=== PATIENT | male | born 1965 ===

== ENCOUNTER → 2023-09-04 14:56 | Outpatient (BNVA) | payer OTHER, SELFPAY | PROVIDERS: Visit Provider Podiatrist Foot & Ankle Surgery | DX: Q66.72 Congenital pes cavus, left foot; Q66.71 Congenital pes cavus, right foot | CPT/HCPCS: 77077; 99203 ==

== ENCOUNTER 2023-12-30 20:00 | Outpatient (CLI) | payer OTHER, SELFPAY | END 2023-12-30 20:01 | disposition home or self-care (01) | LOC: SLEEP 12-31 04:36 | PROVIDERS: Visit Provider Emergency Medicine Emergency Medical Services | DX: G47.33 Obstructive sleep apnea (adult) (pediatric) (principal); R09.02 Hypoxemia; G47.61 Periodic limb movement disorder; R06.83 Snoring | CPT/HCPCS: 95810 ==

== ENCOUNTER 2024-03-16 20:00 | Outpatient (CLI) | payer OTHER, SELFPAY | END 2024-03-16 20:01 | disposition home or self-care (01) | LOC: SLEEP 03-17 05:12 | PROVIDERS: Visit Provider Emergency Medicine Emergency Medical Services | DX: G47.33 Obstructive sleep apnea (adult) (pediatric) (principal) | CPT/HCPCS: 95811 ==

== ENCOUNTER → 2024-04-21 07:55 | Outpatient (BNVA) | payer OTHER, SELFPAY | PROVIDERS: Visit Provider Podiatrist Foot & Ankle Surgery | DX: Q66.71 Congenital pes cavus, right foot (principal); Q66.72 Congenital pes cavus, left foot | CPT/HCPCS: 99213 ==